=== PATIENT | female | born 1970 ===

== ENCOUNTER 2021-09-11 18:58 | Emergency (ER) | payer SELFPAY ==
[2021-09-11 20:43] VITALS: BP 181/85
== END 2021-09-11 22:28 | disposition left against medical advice (07) ==
LOC: ED 18:58
DX: R11.10 Vomiting, unspecified (principal); R10.9 Unspecified abdominal pain; Z53.21 Procedure and treatment not carried out due to patient leaving prior to being seen by health care provider